=== PATIENT | male | born 1940 | race Caucasian/White ===

== ENCOUNTER 2019-12-23 04:17 | Emergency (ER) | payer MEDICARE, BC, SELFPAY ==
--- NOTE | ~2019-12-23 | XR_ITS ---
EXAMINATION: XR abdomen/kub 1V INDICATION: Abdominal pain TECHNIQUE: Supine views of the abdomen were obtained on 2 radiographs. COMPARISON: 11/29/2014 FINDINGS: There are no dilated loops of bowel. There is elevation of the right hemidiaphragm. Multipl e pelvic phleboliths are noted. There are changes of left total hip arthroplasty. Mild right hip oste oarthritis is noted. There is moderate to severe lumbar spondylosis. IMPRESSION: 1. No radiographic correlate for the patient's symptoms. Reviewed, dictated and finalized at location A.
[2019-12-23 04:20] VITALS: BP 140/90; PULSE 90; RESP 16; TEMP 36.6; O2SAT 95
[2019-12-23 05:36] LABS: Hematocrit 44.5 % (37.0-46.0); Hemoglobin 14.3 g/dL (12.4-15.3); Mean Corpuscular HGB Conc 32.1 g/dL (32.0-36.0); Mean Corpuscular Volume 99.6 fL (78.0-102.0); Mean Platelet Volume 9.4 fl (8.7-11.0); Platelet Count Result 239 K/mm3 (150-420); Red Blood Count 4.47 M/mm3 (4.70-6.10); Red Cell Distribution Width 12.6 % (11.6-14.4); White Blood Count 11.3 K/mm3 (4.8-10.8)
[2019-12-23 05:49] LABS: Alanine Aminotransferase 10 U/L (16-63); Alkaline Phosphatase 69 U/L (46-116); Aspartate Amino Transferase 24 U/L (15-37); Bilirubin,Total 0.5 mg/dL (0.00-1.00); Blood Urea Nitrogen 32 mg/dL (7-18); CRP 0.5 mg/dL (0.0-0.9); Calcium 9.2 mg/dL (8.5-10.1); Carbon Dioxide 28 mmol/L (21-32); Estimated Glomerular Filt Rate 40; Glucose 162 mg/dL (70-99); Total Protein 7.4 g/dL (6.4-8.2)
[2019-12-23 06:04] VITALS: BP 140/70; PULSE 88; RESP 18; O2SAT 95
[2019-12-23 07:01] LABS: Anion Gap 10.2 mmol/L (7-16); Chloride 106 mmol/L (98-107); Osmolality Calculated 300 mOsm/kg (285-295); Potassium 4.2 mmol/L (3.4-5.0); Sodium 140 mmol/L (137-145)
--- NOTE | 2019-12-23 07:25 | ED.GENADULT ---
HPI - General Adult General Chief complaint: Unspecified Stated complaint: stomac pain Source: patient and EMS Limitations: no limitations History of Present Illness HPI narrative: Patient awoke with mild to moderate abd pain. Feels nauseated. No vomiting, diarrhea or constipation. Denies urinary symptoms. He has had some sinus drainage as well. complaint: Abd Pain Onset (ago): hour(s) (1) Location: abdomen Radiation: non-radiation Severity: mild and moderate Quality: aching and dull Pain Consistency: intermittent Relieving factors: none Exacerbating factors: none Associated symptoms: nausea/vomiting (Nausea Only) Related Data Allergies Allergy/AdvReac Type Severity Reaction Status Date / Time amoxicillin [From Augmentin] Allergy Unknown Verified 12/23/19 06:05 clavulanic acid Allergy Unknown Verified 12/23/19 06:05 [From Augmentin] Review of Systems Review of Systems: All systems reviewed & are unremarkable except as noted in HPI and below Constitutional: Constitutional: Denies chills and Denies fever(s) ENT: Reports nasal congestion Respiratory: Respiratory: Reports no additional respiratory complaints Gastrointestinal: Gastrointestinal: Denies constipation, Denies diarrhea and Denies vomiting Genitourinary: Genitourinary: Reports no additional male genitourinary complaints Musculoskeletal: Musculoskeletal: Reports no additional musculoskeletal complaints Integumentary/Breasts: Skin/Breast: Reports system reviewed and no additional complaints, except as docu Neurologic: Reports system reviewed and no additional complaints, except as documented Psychiatric: Psychiatric: Reports no additional psychiatric complaints [facility] Past Medical History Medical History (Updated 12/23/19 @ 07:53 by Johann Sims MD) Afib BPH (benign prostatic hyperplasia) HTN (hypertension) Surgical History Surgical History (Updated 12/23/19 @ 07:43 by Johann Sims MD) History of cataract surgery History of hip replacement, total Left Social History Social History (Updated 12/23/19 @ 07:43 by Johann Sims MD) Smoking status: Never smoker Alcohol intake: never Substance use: never Gender identity (if verbalized by the patient): Male Sexual Orientation (if Verbalized by the Patient): Straight or Heterosexual Exam Const: General: healthy appearing and no acute distress Nutritional Appearance: obese centrally obese Orientation/consciousness: patient oriented x3 Limitations: no limitations HENMT: Head: normal to inspection Ears: external ears normal Face and sinus: normal facial exam Mouth: Yes lip normal and Yes moist mucous membranes Eyes: Conjunctivae: conjunctivae normal Pupils: Equal, round and reactive pupils present EOM: EOMs intact bilaterally Neck: Neck: normal visual inspection Resp: Effort & Inspection: normal respiratory effort Auscultation: clear to auscultation bilaterally Cardio: Rate: regular rate Rhythm: regular rhythm GI: GI Palp: Yes Soft to palpation, No Tenderness to palpation present (GI), No Guarding due to palpation present (GI) and No Rebound tenderness present Auscultation: normal bowel sounds Back/Spine/Pelvis: Cervical Spine: cervical ROM normal Skin: General skin exam: normal color Rashes: no rashes Neuro: General: patient oriented x3 and moves all extremities Extrem: General: normal to inspection and no pedal edema Psych: Appearance: grossly normal and well kempt Mental Status: mental status grossly normal Affect: normal affect Attitude: cooperative Thought content: Yes Normal thought content present Course Course Emergency Course: Patient states he feels much better. His abd symptoms have improved. I went over his lab results and his exam is benign, no abd pain on exam. Vital Signs Vital signs: Vital Signs Temperature 36.6 C 12/23/19 04:20 Pulse Rate 90 12/23/19 04:20 Respiratory Rate 16 12/23/19 04:20 Blood Pressure 140/90
[2019-12-23 07:44] LABS: Add Urine Microscopic? YES; Appearance Urine Clear (Clear); Bilirubin Urine Negative (Negative); Blood Urine 1+ (Negative); Color Urine Yellow (Yellow); Glucose Urine UA 2+ (Negative); Ketones Urine 1+ (Negative); Leukocyte Esterase Ur Negative LEU/UL (Negative); Nitrate Urine Negative (Negative); Protein Urine Trace (Negative); pH Urine 6.5 (5.0-8.0)
[2019-12-23 07:53] LABS: Bacteria Urine Trace /hpf; Squamous Epithelial Cell Urine Rare /hpf (Few); WBC Urine None seen /hpf (0-3)
[2019-12-23 08:00] VITALS: BP 141/70; PULSE 63; RESP 14; TEMP 36.8; O2SAT 98
== END 2019-12-23 08:00 | disposition home or self-care (01) ==
PROVIDERS: Emergency Provider Emergency Medicine; PCP Family Medicine
DX: A08.4 Viral intestinal infection, unspecified (principal); I48.91 Unspecified atrial fibrillation; I10 Essential (primary) hypertension
CPT/HCPCS: 36415; 74018; 80053; 81001; 85027; 86140; 99283; 99284

== ENCOUNTER 2020-02-28 06:36 | Emergency (ER) | payer MEDICARE, BC, SELFPAY ==
[2020-02-28 06:40] VITALS: BP 143/86; PULSE 80; RESP 18; TEMP 37.1; O2SAT 97
--- NOTE | 2020-02-28 07:03 | PC.NURSE ---
[id number] DR CAVANAUGH NOTIFIED OF PATIENT ARRIVAL. AWAITING DR MURCIA.
--- NOTE | 2020-02-28 07:12 | ED.DENTAL ---
HPI - Dental/Oral General Chief complaint: Dental/Oral Stated complaint: ambulance Time Seen by Provider: 02/28/20 07:13 Source: patient Mode of arrival: EMS Limitations: no limitations History of Present Illness HPI Narrative: 79-year-old man with a history of taking warfarin for atrial fibrillation comes in today complaining of bleeding at a dental extraction site. He saw Dr. Easley in [address] yesterday afternoon. He states that he has been bleeding most of the night and has not been able to sleep. He denies vomiting, headache, difficulty swallowing or difficulty breathing. He stopped his warfarin 2 days ago. Teeth map: 1. bleeding extraction site Onset (ago): day(s) (1) Duration: constant Severity: moderate Relieving factors: nothing Exacerbating factors: nothing Related Data Home Medications Medication Instructions Recorded Confirmed amiodarone 200 mg PO HS 02/28/20 02/28/20 clindamycin HCl 150 mg PO DAILY 02/28/20 02/28/20 metoprolol succinate 25 mg PO HS 02/28/20 02/28/20 potassium chloride [Klor-Con M20] 20 meq PO DAILY 02/28/20 02/28/20 rosuvastatin 5 mg PO HS 02/28/20 02/28/20 tamsulosin 0.4 mg PO HS 02/28/20 02/28/20 Allergies Allergy/AdvReac Type Severity Reaction Status Date / Time amoxicillin [From Augmentin] Allergy Unknown Verified 12/23/19 06:05 clavulanic acid Allergy Unknown Verified 12/23/19 06:05 [From Augmentin] Review of Systems Constitutional: Constitutional: Denies chills and Denies fever(s) Eyes: Eyes: Denies change in vision and Denies photophobia ENT: Denies dysphagia, Denies nasal congestion and Denies sore throat Cardiovascular: Cardiovascular: Denies chest pain and Denies radiating jaw, neck or arm pain Respiratory: Respiratory: Denies cough, Denies dyspnea and Denies wheezing Gastrointestinal: Gastrointestinal: Denies abdominal pain, Denies nausea and Denies vomiting Genitourinary: Genitourinary: Denies dysuria and Denies urinary frequency Integumentary/Breasts: Skin/Breast: Denies pruritus, Denies erythema and Denies rash Neurologic: Denies vertigo, Denies dizziness and Denies syncope Hematologic/Lymphatic: Hematologic/Lymphatic: Reports easy bleeding and Reports easy bruising Allergic/Immunologic: Allergic/Immunologic: Denies lip swelling and Denies tongue swelling PMFSH Past Medical History Medical History Afib BPH (benign prostatic hyperplasia) HTN (hypertension) Surgical History Surgical History History of cataract surgery History of hip replacement, total Left Social History Social History Smoking status: Never smoker Alcohol intake: never Substance use: never Gender identity (if verbalized by the patient): Male Exam Const: General: healthy appearing and alert Orientation/consciousness: patient oriented x3 Limitations: no limitations Other: anxious HENMT: Head: normal to inspection Ears: external ears normal, TM's normal bilaterally and EAC's normal General nose exam: Normal nares present Face and sinus: normal facial exam Other: Large fibrin clot attached to the posterior aspect of the tongue which is rather dry. There is mild gingival swelling around the extraction site at 31 or 32 Where there is also a laceration on the buccal surface of the gingiva. Area is tender. There is no purulent drainage however there is a steady flow of maroon blood from the extraction site. There is no jaw, submandibular, or neck swelling. Eyes: Conjunctivae: conjunctivae normal Pupils: Equal, round and reactive pupils present EOM: EOMs intact bilaterally Resp: Effort & Inspection: normal respiratory effort and not labored Auscultation: clear to auscultation bilaterally, no rales, no rhonchi and no wheezes Cardio: Rate: regular rate Rhythm: abnormal rhythm Skin: General skin
[2020-02-28 07:43] LABS: Basophils Absolute Auto 0.01 K/mm3 (0.00-0.10); Basophils Percent Auto 0.1 % (0.0-1.0); Eosinophils Absolute Auto 0.08 K/mm3 (0.02-0.50); Hematocrit 42.7 % (37.0-46.0); Hemoglobin 13.6 g/dL (12.4-15.3); Immature Granulocyte Absolute 0.03 K/mm3 (0.00-0.00); Immature Granulocyte Percent A 0.4 % (0.0-0.0); Lymphocytes Absolute Auto 1.33 K/mm3 (1.10-4.50); Mean Corpuscular HGB Conc 31.9 g/dL (32.0-36.0); Mean Corpuscular Hemoglobin 31.4 pg (27.0-31.0); Mean Corpuscular Volume 98.6 fL (78.0-102.0); Mean Platelet Volume 9.1 fl (8.7-11.0); Monocytes Absolute Auto 0.65 K/mm3 (0.10-0.90); Monocytes Percent Auto 7.8 % (2.0-11.0); Neutrophils Absolute Auto 6.2 K/mm3 (1.7-7.2); Neutrophils Percent Auto 74.7 % (50.0-70.0); Platelet Count Result 243 K/mm3 (150-420); Red Blood Count 4.33 M/mm3 (4.70-6.10); Red Cell Distribution Width 12.9 % (11.6-14.4); White Blood Count 8.3 K/mm3 (4.8-10.8)
--- NOTE | 2020-02-28 07:53 | PC.NURSE ---
Addendum entered by Jose Melgoza, MARQUISE 02/28/20 07:56: [address] MURCIA, SUCTION TO CLOT AREA , SURGICEL APPLIED. 07[address] DR [address] SPOKE WITH DR LOTT, ORAL SURGEON. PT TO GO DIRECTLY TO OFFICE PER PERSONAL VEHICLE. CALL TO TO NOTIFY. STATES SHE WILL BE HERE TATO. Original Note: 0710 MANUAL PRESSURE PER RN. 0740
[2020-02-28 07:59] VITALS: BP 141/83; PULSE 78; RESP 20; TEMP 36.9; O2SAT 98
[2020-02-28 08:07] LABS: Anion Gap 8 mmol/L (8-16); Blood Urea Nitrogen 25 mg/dL (7-18); Calcium 9.4 mg/dL (8.5-10.1); Carbon Dioxide 29 mmol/L (21-32); Chloride 106 mmol/L (98-108); Estimated CRCL calculation 57 ml/min; Estimated Glomerular Filt Rate > 60; Glucose 118 mg/dL (70-99); Osmolality Calculated 301 mOsm/kg (285-295); Potassium 3.7 mmol/L (3.5-5.1); Sodium 143 mmol/L (136-145)
[2020-02-28 08:09] LABS: Partial Thromboplastin Time 45.6 SEC (22.3-31.6); Prothrombin Time 39.4 Seconds (9.64-11.0)
--- NOTE | 2020-02-28 08:34 | PC.NURSE ---
0825 FRESH GAUZE TO PRESSURE DYAN QUEVEDO ASSISTED TO CAR WITH . DRCHANDRAKANTCTIONS TO BOTH. BOTH VOICED UNDERSTANDING. CALL TO DR LOTT OFFICE TO NOTIFY WENDY OF DEPARTURE AND LAB RESULTS.
== END 2020-02-28 08:28 | disposition home or self-care (01) ==
PROVIDERS: Emergency Provider Emergency Medicine; PCP Family Medicine
DX: K13.79 Other lesions of oral mucosa (principal); I48.91 Unspecified atrial fibrillation; I10 Essential (primary) hypertension
CPT/HCPCS: 12011; 36415; 80048; 85025; 85610; 85730; 99282; 99283

== ENCOUNTER 2021-04-29 21:43 | Emergency (ER) | payer MEDICARE, BC, SELFPAY ==
[2021-04-29 22:03] VITALS: BP 126/67; PULSE 67; RESP 18; TEMP 36.9; O2SAT 96
[2021-04-30 00:21] VITALS: BP 129/78; PULSE 63; RESP 16; TEMP 36.1; O2SAT 96
[2021-04-30 00:39] LABS: Basophils Percent Auto 0.3 % (0.2-1.2); Eosinophils Absolute Auto 0.2 K/mm3 (0-0.3); Eosinophils Percent Auto 2.1 % (0-4.4); Hematocrit 45.8 % (42.0-52.0); Hemoglobin 14.7 g/dL (14.0-18.0); Immature Granulocyte Absolute 0.03 K/mm3 (0.00-0.031); Immature Granulocyte Percent A 0.4 % (0-0.5); Lymphocytes Absolute Auto 1.31 K/mm3 (0.9-3.2); Lymphocytes Percent Auto 16.8 % (18.3-44.2); Mean Corpuscular HGB Conc 32.1 g/dl (32-36); Mean Corpuscular Hemoglobin 32.5 pg (26-34); Mean Corpuscular Volume 101.3 fl (80-100); Mean Platelet Volume 9.2 fl (7.4-10.4); Monocytes Absolute Auto 0.6 K/mm3 (0.1-0.6); Monocytes Percent Auto 8.2 % (2.6-8.5); Neutrophils Absolute Auto 5.6 K/mm3 (1.3-6.7); Neutrophils Percent Auto 72.2 % (45.5-73.1); Platelet Count Result 267 k/mm3 (150-375); Red Blood Count 4.52 M/mm3 (4.6-6.20); Red Cell Distribution Width 13.1 % (11.5-14.5); White Blood Count 7.8 K/mm3 (4.5-10.0)
--- NOTE | 2021-04-30 00:52 | ED.RECABL ---
HPI - Recheck/Abnormal Lab/Rx General Chief Complaint: Recheck/Abnormal Lab/Rx Stated Complaint: elevated INR from PCP Time Seen by Provider: 04/30/21 00:26 Source: patient and RN notes reviewed Mode of arrival: ambulatory Limitations: no limitations History of Present Illness HPI narrative: This is an 80 year old male with history of atrial fibrillation, chronic anticoagulation who presents for evaluation of supratherapeutic INR. Patient states he was called by his PCP at 9 pm tonight, and was told he needed to come to ER for INR of 15. He has taken his dose of Warfarin tonight. His INR was last checked 1 mo nth ago and he is unsure of the level. At that time his warfarin was decreased. He denies any bleeding, weakness, melena. He denies headache, dizziness or head injury,. He denies any bleeding at all. Related Data Home Medications Medication Instructions Recorded Confirmed amiodarone 200 mg PO HS 02/28/20 02/28/20 clindamycin HCl 150 mg PO DAILY 02/28/20 02/28/20 metoprolol succinate 25 mg PO HS 02/28/20 02/28/20 potassium chloride [Klor-Con M20] 20 meq PO DAILY 02/28/20 02/28/20 rosuvastatin 5 mg PO HS 02/28/20 02/28/20 tamsulosin 0.4 mg PO HS 02/28/20 02/28/20 Allergies Allergy/AdvReac Type Severity Reaction Status Date / Time amoxicillin [From Augmentin] Allergy Rash Verified 04/30/21 00:26 clavulanic acid Allergy Rash Verified 04/30/21 00:26 [From Augmentin] Review of Systems Review of Systems: All systems reviewed & are unremarkable except as noted in HPI and below Constitutional: Constitutional: Denies chills, Denies fever(s) and Denies weakness Genitourinary: Genitourinary: Denies hematuria Neurologic: Denies dizziness PMFSH Past Medical History Medical History Afib BPH (benign prostatic hyperplasia) HTN (hypertension) Surgical History Surgical History History of cataract surgery History of hip replacement, total Left Social History Social History Smoking status: Never smoker Alcohol intake: never Substance use: never Gender identity (if verbalized by the patient): Male Sexual Orientation (if Verbalized by the Patient): Straight or Heterosexual Exam Const: General: no acute distress and alert Orientation/consciousness: patient oriented x3 Eyes: EOM: EOMs intact bilaterally Resp: Effort & Inspection: normal respiratory effort and no retractions Auscultation: clear to auscultation bilaterally Cardio: Rate: regular rate Rhythm: regular rhythm Heart sounds: no murmurs GI: GI Palp: Yes Soft to palpation, No Tenderness to palpation present (GI) and No Guarding due to palpation present (GI) Auscultation: normal bowel sounds Skin: General skin exam: normal color Rashes: no rashes Neuro: General: patient oriented x3, moves all extremities and CN's II-XI intact bilaterally Psych: Mental Status: mental status grossly normal Affect: normal affect Course Reevaluation(s) Reevaluation #1: I spoke with Dr. Tyson that is bonding machine setter for Dr. Tovar. Patient has no signs of bleeding. INR is 10. She states patient will need to call office tomorrow for close follow up . He will be given dose of vitamin K and told to hold his warfarin. He will also be given bleeding precautions. Date: 04/30/21 Time: 03:06 Vital Signs Vital signs: Vital Signs Temperature 98.5 F 04/29/21 22:03 Pulse Rate 67 04/29/21 22:03 Respiratory Rate 18 04/29/21 22:03 Blood Pressure 126/67 04/29/21 22:03 Pulse Oximetry 96 04/29/21 22:03 Temperature 97 F L 04/30/21 00:21 Pulse Rate 62 04/30/21 03:44 Respiratory Rate 18 04/30/21 03:44 Blood Pressure 125/62 04/30/21 03:44 Pulse Oximetry 100 04/30/21 03:44 MDM - Recheck/Abnormal Lab/Rx Lab Data Attestation: I reviewed the patient's lab resu
[2021-04-30 00:53] LABS: Anion Gap 5 mmol/L (8-16); Blood Urea Nitrogen 24 mg/dL (9-20); Calcium 9.8 mg/dL (8.4-10.2); Carbon Dioxide 31 mmol/L (22-30); Chloride 103 mmol/L (98-107); Estimated CRCL calculation 60 ml/min; Estimated Glomerular Filt Rate > 60; Glucose 118 mg/dL (65-110); Potassium 4.7 mmol/L (3.4-5.0); Sodium 139 mmol/L (137-145)
[2021-04-30 00:57] LABS: Partial Thromboplastin Time 76.7 SECONDS (22.3-36.8); Prothrombin Time 76.7 Seconds (11.1-14.7)
[2021-04-30 02:20] LABS: INR 10.1
[2021-04-30 03:44] VITALS: BP 125/62; PULSE 62; RESP 18; O2SAT 100
[2021-04-30] MEDS: PHYTONADIONE 5 MG TABLET PO (03:46)
== END 2021-04-30 04:33 | disposition home or self-care (01) ==
PROVIDERS: Emergency Medicine; Emergency Provider General Practice; PCP Family Medicine
DX: R79.1 Abnormal coagulation profile (principal); I10 Essential (primary) hypertension; I48.91 Unspecified atrial fibrillation; Z79.01 Long term (current) use of anticoagulants
CPT/HCPCS: 36415; 80048; 85025; 85610; 85730; 99283; A9270

== ENCOUNTER 2022-08-16 09:42 | Emergency (ER) | payer MEDICARE, BC, SELFPAY ==
[2022-08-16] VITALS (9 sets, daily range): BP systolic 129–173; BP diastolic 68–99; PULSE 62–84; RESP 18–20; TEMP 36.7; O2SAT 95–100
--- NOTE | ~2022-08-16 | CT_ITS ---
EXAMINATION: CT abdomen pelvis w con INDICATION: Abdominal pain TECHNIQUE: Computed tomographic images of the abdomen and pelvis were obtained after the administrati on of 100 cc of Omnipaque 350 intravenous contrast. The dose-length product (DLP) was 821.17 mGy-cm. Automated exposure control and iterative reconstruction technique were employed. COMPARISON: 11/05/2017 FINDINGS: There are airspace opacities of the right middle and lower lobes. There is a moderate-sized sliding hiatal hernia. Calcified coronary artery atherosclerosis is noted. The heart size is normal. Punctate calcifications in otherwise normal appearing liver and spleen likely represent healed granu lomatous disease. The pancreas, gallbladder, and adrenal glands are normal. Nonobstructing stones of the right kidney measure up to 9 mm. There is a 2.5 cm cyst of the otherwise normal left kidney. No p athologically enlarged abdominal or pelvic lymph nodes are identified. No free intraperitoneal gas or evidence of bowel obstruction. A large volume of colonic stool is present. There are changes of left total hip arthroplasty. 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 There are chronic burst f ractures of L2 and L3 and new, age indeterminate burst fractures at L1, L4, and L5. IMPRESSION: 1. Airspace opacities of the right middle and lower lobes, consistent with atelectasis versus pneumon ia. 2. 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 3. Moderate-sized sliding hiatal hernia. Reviewed, dictated and finalized at location F. IMPRESSION: 1. Airspace opacities of the right middle and lower lobes, consistent with atel ectasis versus pneumonia. 2. 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 3. Moderate-sized sliding hiatal hernia.
[2022-08-16 10:14] LABS: Basophils Percent Auto 0.3 % (0.2-1.2); Eosinophils Absolute Auto 0.1 K/mm3 (0-0.3); Eosinophils Percent Auto 1.1 % (0-4.4); Hemoglobin 14.6 g/dL (14.0-18.0); Immature Granulocyte Absolute 0.03 K/mm3 (0.00-0.031); Immature Granulocyte Percent A 0.4 % (0-0.5); Lymphocytes Absolute Auto 0.99 K/mm3 (0.9-3.2); Mean Corpuscular HGB Conc 32.4 g/dl (32-36); Mean Corpuscular Hemoglobin 31.8 pg (26-34); Mean Platelet Volume 9.2 fl (7.4-10.4); Monocytes Absolute Auto 0.5 K/mm3 (0.1-0.6); Monocytes Percent Auto 6.7 % (2.6-8.5); Neutrophils Percent Auto 78.5 % (45.5-73.1); Platelet Count Result 286 k/mm3 (150-375); Red Blood Count 4.59 M/mm3 (4.6-6.20); Red Cell Distribution Width 12.6 % (11.5-14.5); White Blood Count 7.6 K/mm3 (4.5-10.0)
[2022-08-16 10:24] LABS: Alanine Aminotransferase 11 U/L (6-50); Albumin Level 4.1 g/dL (3.5-5.1); Alkaline Phosphatase 112 U/L (38-126); Anion Gap 9 mmol/L (8-16); Aspartate Amino Transferase 23 U/L (17-59); Bilirubin,Total 0.8 mg/dL (0.2-1.3); Blood Urea Nitrogen 19 mg/dL (9-20); Calcium 9.3 mg/dL (8.4-10.2); Carbon Dioxide 27 mmol/L (22-30); Chloride 103 mmol/L (98-107); Estimated Glomerular Filt Rate > 60; Glucose 134 mg/dL (65-110); Lipase 58 U/L (23-300); Potassium 4.1 mmol/L (3.4-5.0); Sodium 139 mmol/L (137-145)
[2022-08-16 13:27] LABS: Appearance Urine Clear (Clear); Bacteria Urine None Seen /hpf; Bilirubin Urine Negative (Negative); Blood Urine Negative (Negative); Color Urine Yellow (Yellow); Glucose Urine UA Negative (Negative); Ketones Urine 1+ mg/dL (Negative); Leukocyte Esterase Ur Negative LEU/UL (Negative); Nitrate Urine Negative (Negative); Non Pathogenic Casts 0-2; Protein Urine Trace mg/dL (Negative); RBC Urine 0-2 /hpf (0-2); Specific Grav Ur 1.027 (1.001-1.035); Squamous Epithelial Cell Urine None seen /hpf (Few); WBC Urine 0-5 /hpf
[2022-08-16 13:46] LABS: Add Urine Microscopic? YES
--- NOTE | 2022-08-16 14:11 | ED.GENADULT ---
HPI - General Adult General Chief complaint: Abdominal Pain Stated complaint: abd pain Time Seen by Provider: 08/16/22 12:40 History of Present Illness HPI narrative: 81-year-old male presenting to the emergency department for evaluation of right hip pain, back pain and lower abdominal pain. Patient reports he had multiple days of constipation but did have a large bowel movement yesterday. Patient states he is still having some lower abdominal pressure. Patient reports he did have a fall a few days ago and was having some right hip pain. Patient does have history of total arthroplasty on that side. Patient does have a history of lumbar compression fractures and reports he did have a fall approximately 3 weeks ago. Patient denies any new associated numbness or weakness. Related Data Home Medications Medication Instructions Recorded Confirmed amiodarone 200 mg tablet 200 mg PO HS 02/28/20 02/28/20 metoprolol succinate 25 mg 25 mg PO HS 02/28/20 02/28/20 tablet,extended release 24 hr potassium chloride 20 mEq 20 meq PO DAILY 02/28/20 02/28/20 tablet,extended release(part/cryst) (Klor-Con M) rosuvastatin 10 mg tablet 5 mg PO HS 02/28/20 02/28/20 tamsulosin 0.4 mg capsule 0.4 mg PO HS 02/28/20 02/28/20 apixaban 5 mg tablet (Eliquis) 5 mg BID 08/16/22 Allergies Allergy/AdvReac Type Severity Reaction Status Date / Time amoxicillin [From Augmentin] Allergy Rash Verified 08/16/22 13:19 clavulanic acid Allergy Rash Verified 08/16/22 13:19 [From Augmentin] Review of Systems Review of Systems: All systems reviewed & are unremarkable except as noted in HPI and below PMFSH Past Medical History Medical History Afib BPH (benign prostatic hyperplasia) HTN (hypertension) Surgical History Surgical History History of cataract surgery History of hip replacement, total Left Social History Social History Smoking status: Never smoker Alcohol intake: never Substance use: never Gender identity (if verbalized by the patient): Male Sexual Orientation (if Verbalized by the Patient): Straight or Heterosexual Exam Narrative: APPEARANCE: Well appearing, no pain, no distress, well-nourished. HEAD: normocephalic, atraumatic. EYES: PERRLA/EOMI, conjunctivae clear. NOSE: Normal no drainage NECK: Supple. No adenopathy, no masses. RESPIRATORY: Airway patent, respirations nonlabored. Clear to auscultation bilaterally, no rales, rhonchi, wheezing. CARDIOVASCULAR: Regular rate and rhythm without murmurs rubs or gallops. ABDOMINAL: Soft, mild lower abdominal tenderness, nondistended, normal bowel sounds MUSCULOSKELETAL: Moves all extremities. Strength/ROM intact, No edema, No calf tenderness. NEURO: Alert. Cranial nerves II through XII intact. Grossly intact SKIN: Warm, dry. Normal Color Course Course Emergency Course: Patient is afebrile with no leukocytosis. Patient denies any chest pain or shortness of breath. Patient denies any associated cough. UA did show ketones with no evidence of urinary tract infection. CT scan shows old burst fractures and age-indeterminate burst fractures. Patient states he has had no worsening of his back pain. Patient was able to ambulate at his baseline. Patient states that the abdominal pain did improve after having a large bowel movement. Both patient and family were updated on the results of the work-up and on importance for close follow-up with the patient's primary care physician. Patient was provided medications for home for pain control for his back pain. Patient has no new neurologic changes and denies any new numbness or weakness. Patient was provided follow-up with neurosurgery. Vital Signs Vital signs: Vital Signs Temperature 98.1 F 08/16/22 09:57 Pulse Rate 62 08/16/22 09:57 Respiratory Rate
[2022-08-16] MEDS: traMADol HCL (*CRX) 50 MG TABLET PO (16:56)
== END 2022-08-16 17:00 | disposition home or self-care (01) ==
PROVIDERS: Emergency Medicine; Emergency Provider Emergency Medicine
DX: M48.56XA Collapsed vertebra, not elsewhere classified, lumbar region, initial encounter for fracture (principal); R10.9 Unspecified abdominal pain; K59.00 Constipation, unspecified; I48.91 Unspecified atrial fibrillation; I10 Essential (primary) hypertension; N40.0 Benign prostatic hyperplasia without lower urinary tract symptoms; Z79.01 Long term (current) use of anticoagulants
CPT/HCPCS: 36415; 74177; 80053; 81001; 83690; 85025; 99284; A9270; Q9967

== ENCOUNTER 2022-08-31 15:31 | Inpatient (IN) | payer MEDICARE, BC, SELFPAY ==
--- NOTE | ~2022-08-31 | CT_ITS ---
EXAMINATION: CT brain wo con DATE: 08/31/2022 19:35 INDICATION: weakness, confusion . TECHNIQUE: Computed tomography (CT) of the head was performed without intravenous contrast. The mA wa s adjusted according to patient size. Iterative reconstruction technique was employed. The dose-lengt h product was 681.00 mGy-cm. COMPARISON: 11/29/2014. FINDINGS: No acute intracranial hemorrhage or extra-axial fluid collection. No hydrocephalus, mass, or herniation. No acute ischemic infarct. Unremarkable dural venous sinus attenuation. No acute osseous abnormality. Left mastoid fluid, the remaining aerated spaces are clear. Moderate atrophy and chronic white matter change. Atherosclerotic intracranial calcification. 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 Bilateral lens replacements. IMPRESSION: No acute intracranial process. Reviewed, dictated and finalized at location K.
--- NOTE | ~2022-08-31 | XR_ITS ---
EXAMINATION: XR chest 1V Exam Date/Time: 08/31/2022 19:30 CDT HISTORY: weakness Comparison: 01/17/2018. RESULT: Lines, tubes, and devices: None. Lungs and pleura: Right rotation. Low lung volumes with crowding, more so in the right lung. Bibasil ar scar/atelectasis. Cardiomediastinal silhouette: Stable. Large hiatal hernia. Right hemidiaphragm elevation. Other: No acute osseous or upper abdominal finding. IMPRESSION: No acute cardiopulmonary process. Reviewed, dictated and finalized at location K.
--- NOTE | ~2022-08-31 | XR_ITS ---
XR abdomen/kub 1V 09/02/2022 15:34 Indication: Abdominal distention Procedure: KUB Comparison: 09/02/2022 Findings: Chronic elevation of the right diaphragm with right basilar atelectasis. Bowel gas pattern nonobstructive. Severe lumbar spondylosis. There is a left total hip arthroplasty. There are several pelvic phleboliths. No acute osseous abnormality. Impression: 1: No acute abdominal abnormality. Reviewed, dictated and finalized at location B. Impression: 1: No acute abdominal abnormality.
--- NOTE | ~2022-08-31 | XR_ITS ---
EXAM: XR hip RT 2V w AP pelvis DATE: 08/31/2022 19:45 HISTORY: fall . COMPARISON: None available. FINDINGS: Decreased mineralization. Partially visualized, uncomplicated appearing left hip arthropla sty. Degenerative changes in the lumbar spine and right hip. No fracture or dislocation. Multiple pel andrew phleboliths. IMPRESSION: No acute osseous finding in the pelvis or right hip. Reviewed, dictated and finalized at location K.
--- NOTE | ~2022-08-31 | CT_ITS ---
Non-contrast CT scan of the Abdomen and Pelvis Clinical indication: Abdominal pain Technique: 2.5 mm axial scans were obtained through the abdomen and pelvis without intravenous or or al contrast. Dose reduction technique was used on this scan by utilizing automated exposure control a nd iterative reconstruction technique. The dose-length product (DLP) was 1031.28 mGy-cm. COMPARISON: 08/16/2022 Findings: Images through the lung bases reveal moderate to large hiatal hernia. Bilateral nonobstructing renal calculi are present. No ureteral stone or hydronephrosis identified. The liver, spleen, pancreas, gallbladder, and adrenals appear normal. There are atherosclerotic calci fications of the aorta. There is no evidence of bowel obstruction. Images through the pelvis are degraded by streak artifact from left hip arthroplasty. There is no lavell dence of ascites or lymphadenopathy. Urinary bladder appears unremarkable. Prostate gland is grossly unremarkable. Compression fracture of T10 is new from prior exam. Additional compression fractures of L1, L2, L3, L 4, and L5 are similar to prior exam. Impression: New T10 compression fracture. Stable additional compression fractures of L1, L2, L3, L4, L5. Bilateral nonobstructing renal calculi. Moderate to large hiatal hernia. Reviewed, dictated and finalized at location . Impression: New T10 compression fracture. Stable additional compression fractures of L1, L2 , L3, L4, L5. Bilateral nonobstructing renal calculi. Moderate to large hiatal hernia.
[2022-08-31 15:44] VITALS: BP 121/75; PULSE 80; RESP 17; O2SAT 97
[2022-08-31 16:13] LABS: Basophils Percent Auto 0.1 % (0.2-1.2); Eosinophils Absolute Auto 0.1 K/mm3 (0-0.3); Eosinophils Percent Auto 0.9 % (0-4.4); Hematocrit 45.8 % (42.0-52.0); Hemoglobin 14.8 g/dL (14.0-18.0); Immature Granulocyte Absolute 0.06 K/mm3 (0.00-0.031); Immature Granulocyte Percent A 0.6 % (0-0.5); Lymphocytes Absolute Auto 0.84 K/mm3 (0.9-3.2); Mean Corpuscular HGB Conc 32.3 g/dl (32-36); Mean Corpuscular Hemoglobin 31.9 pg (26-34); Mean Corpuscular Volume 98.7 fl (80-100); Mean Platelet Volume 9.4 fl (7.4-10.4); Monocytes Absolute Auto 0.7 K/mm3 (0.1-0.6); Monocytes Percent Auto 6.4 % (2.6-8.5); Neutrophils Absolute Auto 8.9 K/mm3 (1.3-6.7); Platelet Count Result 322 k/mm3 (150-375); Red Blood Count 4.64 M/mm3 (4.6-6.20); Red Cell Distribution Width 12.4 % (11.5-14.5); White Blood Count 10.5 K/mm3 (4.5-10.0)
[2022-08-31 16:23] LABS: INR 1.4; Prothrombin Time 16.4 Seconds (11.1-14.7)
[2022-08-31 16:40] LABS: Alanine Aminotransferase 13 U/L (6-50); Albumin Level 4.3 g/dL (3.5-5.1); Alkaline Phosphatase 141 U/L (38-126); Anion Gap 6 mmol/L (8-16); Aspartate Amino Transferase 27 U/L (17-59); Blood Urea Nitrogen 25 mg/dL (9-20); Calcium 9.6 mg/dL (8.4-10.2); Carbon Dioxide 31 mmol/L (22-30); Chloride 99 mmol/L (98-107); Estimated Glomerular Filt Rate > 60; Glucose 134 mg/dL (65-110); Sodium 136 mmol/L (137-145)
[2022-08-31 18:46] VITALS: PULSE 91; RESP 27; O2SAT 97
--- NOTE | 2022-08-31 19:18 | ECG_ITS ---
Measurements Intervals [place] Rate: 85 P: 85 UT: 216 QRS: 34 QRSD: 128 T: 36 QT: 407 QTc: 487 Interpretive Statements SINUS RHYTHM WITH FIRST DEGREE AV BLOCK BASELINE ARTIFACT LOW-VOLTAGE QRS IN PRECORDIAL LEADS MODERATE INTRAVENTRICULAR CONDUCTION DELAY ABNORMAL ECG NO PREVIOUS ECG AVAILABLE FOR COMPARISON Electronically Signed On 09-02-2022 16:09:52 CDT by Brian Nunez M.D.
--- NOTE | 2022-08-31 19:21 | ED.AMS ---
HPI - Altered Mental Status General Chief Complaint: Altered Mental Status Stated Complaint: Confusion Time Seen by Provider: 08/31/22 18:46 Source: patient, family (), EMS and RN notes reviewed Mode of arrival: EMS Limitations: altered mental status History of Present Illness HPI narrative: This is an 81 year old male with history of atrial fibrillation who presents for evaluation of confusion. Patient's states he has not been right since this morning. She states he knows her name but he has otherwise been confused. She states he was here 2 weeks ago for weakness but his evaluation was unremarkable so he was sent home. She also reports patient is having right hip pain for the past couple of weeks. He had imaging done on last ER visit and no acute fracture. She states today she can not take him home. PAtient is poor historian and he thinks he is in hotel. Related Data Home Medications Medication Instructions Recorded Confirmed amiodarone 200 mg tablet 200 mg PO HS 02/28/20 08/31/22 metoprolol succinate 25 mg 25 mg PO HS 02/28/20 08/31/22 tablet,extended release 24 hr potassium chloride 20 mEq 20 meq PO DAILY 02/28/20 08/31/22 tablet,extended release(part/cryst) (Klor-Con M) rosuvastatin 10 mg tablet 5 mg PO HS 02/28/20 08/31/22 tamsulosin 0.4 mg capsule 0.4 mg PO HS 02/28/20 08/31/22 apixaban 5 mg tablet (Eliquis) 5 mg BID 08/16/22 08/31/22 Allergies Allergy/AdvReac Type Severity Reaction Status Date / Time amoxicillin [From Augmentin] Allergy Rash Verified 08/31/22 18:48 clavulanic acid Allergy Rash Verified 08/31/22 18:48 [From Augmentin] Review of Systems Review of Systems: ROS unobtainable: Yes unobtainable due to mental status PMFSH Past Medical History Medical History Afib BPH (benign prostatic hyperplasia) HTN (hypertension) Surgical History Surgical History History of cataract surgery History of hip replacement, total Left Social History Social History Smoking status: Never smoker Alcohol intake: never Substance use: never Gender identity (if verbalized by the patient): Male Sexual Orientation (if Verbalized by the Patient): Straight or Heterosexual Exam Const: General: alert, confusion and ill appearing Nutritional Appearance: obese Other: patient appears weak and confused. oriented to place on only HENMT: Head: normal to inspection Face and sinus: normal facial exam Eyes: EOM: EOMs intact bilaterally Neck: Neck: normal visual inspection Chest: Chest palpation & inspection: normal inspection of the chest Resp: Effort & Inspection: normal respiratory effort Auscultation: clear to auscultation bilaterally Cardio: Rate: regular rate Rhythm: regular rhythm Heart sounds: no murmurs GI: GI Palp: Yes Soft to palpation, No Tenderness to palpation present (GI), No Guarding due to palpation present (GI) and No Rigid due to palpation Auscultation: normal bowel sounds Skin: Other: rash to groin and abdominal folds Neuro: General: moves all extremities and CN's II-XI intact bilaterally Extrem: General: edema bilateral (bilateral pedal edema) Psych: Mental Status: mental status grossly normal Affect: normal affect Attitude: cooperative Course Reevaluation(s) Reevaluation #1: PAtient's is no longer at bedside. PAtietn has no complaints. He still seems confusion which I do think is normal for him. Will admitted for further evaluation. Date: 08/31/22 Time: 21:00 Consultations Consultation #1: I Discussed case with Dr. Keita who accepts patient to service Date: 08/31/22 Time: 21:31 Vital Signs Vital signs: Vital Signs Pulse Rate 80 08/31/22 15:44 Respiratory Rate 17 08/31/22 15:44 Blood Pressure 121/75 08/31/22 15:44 Pulse Oximetry 97 08/31/22 15:44 O
[2022-08-31 19:42] LABS: NT Pro B Type Natriuretic Pept 107 pg/mL (19.9-100)
[2022-08-31 19:47] VITALS: BP 154/94; PULSE 82; RESP 26; TEMP 36.7; O2SAT 99
[2022-08-31 20:52] VITALS: BP 138/80; PULSE 79; RESP 23; O2SAT 96
[2022-08-31 21:00] LABS: Appearance Urine Clear (Clear); Bilirubin Urine Negative (Negative); Blood Urine Negative (Negative); Color Urine Dark Yellow (Yellow); Glucose Urine UA Negative (Negative); Ketones Urine Negative (Negative); Leukocyte Esterase Ur Negative LEU/UL (Negative); Nitrate Urine Negative (Negative); Protein Urine Negative (Negative); Specific Grav Ur 1.017 (1.001-1.035); Urobilinogen Urine 0.2 mg/dL (<2.0)
[2022-08-31 21:12] LABS: Add Urine Microscopic? NO
--- NOTE | 2022-08-31 21:36 | PM.IMHP ---
H&P: HPI History of Present Illness Date/Time: 08/31/22 21:36 Chief Complaint: 81 years old male with past medical history of AFib with oral anticoagulation amiodarone metoprolol hyperlipidemia hypertension presented to the hospital with confusion patient is alert oriented times [address] and [address] oriented to self history was taken from the patient patient was not feeling well for the past 2 weeks patient was evaluated at [facility] pain no fracture was found patient continued to have hip pain at the ER CBC CMP was unremarkable chest x-ray was unremarkable CT scan of the head was unremarkable patient was admitted to the hospital for further evaluation and treatment Review of Systems Review of Systems: Unable to obtain due to altered mental status [facility] Past Medical History Medical History Afib BPH (benign prostatic hyperplasia) HTN (hypertension) Surgical History Surgical History History of cataract surgery History of hip replacement, total Left Social History Social History Smoking status: Never smoker Alcohol intake: never Substance use: never Gender identity (if verbalized by the patient): Male Sexual Orientation (if Verbalized by the Patient): Straight or Heterosexual Meds Home Medications and Allergies Home Medications Medication Instructions Recorded Confirmed Type amiodarone 200 mg tablet 200 mg PO HS 02/28/20 02/28/20 History metoprolol succinate 25 mg 25 mg PO HS 02/28/20 02/28/20 History tablet,extended release 24 hr potassium chloride 20 mEq 20 meq PO DAILY 02/28/20 02/28/20 History tablet,extended release(part/cryst) (Klor-Con M) rosuvastatin 10 mg tablet 5 mg PO HS 02/28/20 02/28/20 History tamsulosin 0.4 mg capsule 0.4 mg PO HS 02/28/20 02/28/20 History apixaban 5 mg tablet (Eliquis) 5 mg BID 08/16/22 History tramadol 50 mg tablet 50 mg PO Q12H PRN pain #10 tabs 08/16/22 Rx Allergies Allergy/AdvReac Type Severity Reaction Status Date / Time amoxicillin [From Augmentin] Allergy Rash Verified 08/31/22 18:48 clavulanic acid Allergy Rash Verified 08/31/22 18:48 [From Augmentin] Vital Signs Vital Signs - 24 hr 08/31/22 15:44 08/31/22 18:46 08/31/22 19:47 Temperature 98.1 F Pulse Rate 80 91 82 Respiratory Rate 17 27 H 26 H Blood Pressure 121/75 154/94 H Pulse Oximetry 97 97 99 Oxygen Delivery Room Air 08/31/22 20:52 Temperature Pulse Rate 79 Respiratory Rate 23 H Blood Pressure 138/80 Pulse Oximetry 96 Oxygen Delivery Exam Narrative: GENERAL: No acute distress HEAD: Normocephalic, atraumatic. NECK: Supple. No adenopathy, no masses. RESPIRATORY: Airway patent, respirations nonlabored. Clear to auscultation bilaterally, no rales, rhonchi, wheezing. CARDIOVASCULAR: Regular rate and rhythm without murmurs, rubs, or gallops. Peripheral pulses 2+ and equal bilaterally. ABDOMINAL: Soft, nontender, nondistended, no hepatosplenomegaly. Normoactive BS. MUSCULOSKELETAL: Moves all extremities. Strength/ROM intact without gross deformities or TTP. No edema. No calf tenderness. No chest wall tenderness palpation. SKIN: Warm, dry, normal color. No rashes. NEURO: Alert oriented time 1 moves all extremities no facial asymmetry PSYCHIATRIC: Appropriate mood and affect. Normal interaction. H&P: Results Labs Labs: Short CBC 08/31/22 Range/Units 16:02 WBC 10.5 H (4.5-10.0) K/mm3 Hgb 14.8 (14.0-18.0) g/dL Hct 45.8 (42.0-52.0) % Plt Count 322 (150-375) k/mm3 [facility] 08/31/22 16:02 Sodium 136 L Potassium 4.0 Chloride 99 Carbon Dioxide 31 H BUN 25 H Creatinine 0.80 Glucose 134 H Calcium 9.6 Liver Function 08/31/22 Range/Units 16:02 Total Bilirubin 1.0 (0.2-1.3) mg/dL AST 27 (17-59) U/L ALT 13 (6-50) U/L Alkaline
[2022-08-31] MEDS: SODIUM CHLORIDE 0.9% IV 1,000 ML 100 ML IV CONT (21:51)
[2022-08-31 23:04] VITALS: BP 162/101; PULSE 82; RESP 25; TEMP 37.1; O2SAT 96
[2022-08-31 23:15] VITALS: BP 166/87; PULSE 110; RESP 18; TEMP 36.4; O2SAT 90; BMI 29.9
--- NOTE | 2022-08-31 23:43 | ADMGEN ---
This patient, Randal Duron, was admitted to 2 Medical Room 260-. Patient/family oriented to hospital policies and general routines including ID bracelet, bed and alarms, visiting hours, pain management, procedures, bathroom and other care routines, personal items, smoking policy, room service/diet, and visiting hours. Information on how to activate the Rapid Response Team has been discussed. Patient/Family are encouraged to report perceived risks to care and to ask questions if they do not understand what they are told or what they should do.
[2022-08-31 23:53] LABS: Ammonia < 9 umol/L (9-30); Cholesterol 142 mg/dL (0-200); HDL Direct 44 mg/dL; Triglycerides 95 mg/dL (<150)
[2022-08-31 23:59] LABS: CRP 2.7 mg/dL (<1.0)
[2022-09-01] VITALS (12 sets, daily range): BP systolic 100–126; BP diastolic 65–84; PULSE 61–87; RESP 14–20; TEMP 36.7–37.2; O2SAT 92–96; BMI 29.9; BMI 11.0; BMI 10.0
--- NOTE | 2022-09-01 | ECHO_ITS ---
Patient Info Name: Randal Duron Age: 81 years : 1940 Gender: Male Ht: 66 in Wt: 185 lbs BSA: 2.00 m2 HR: 68 bpm BP: 110 / 84 mmHg Exam Date: 09/01/2022 2:22 PM Exam Location: [facility] Pulmonary Patient Status: Inpatient Admit Date: 08/31/2022 Staff Ordering Physician: Juhi Fair PA-C Shopfitter: Solitario Pettit RDCS, RT Attending Provider: Benton Keita M.A., MD Referring Physician: Marv TAPIA; Exam Type: CA echo doppler color flow Study Info Indications - Edema Complete two-dimensional, color flow and Doppler transthoracic echocardiogram is performed. Strain analysis performed. Summary 1. Complete two-dimensional, color flow and Doppler transthoracic echocardiogram is performed. 2. Left ventricular chamber dimension is normal. 3. Left ventricular systolic function is normal, estimated at 55-60%. 4. There is moderately increased left ventricular wall thickness. 5. The left ventricular diastolic function is grade I diastolic dysfunction. 6. Right ventricular systolic function is normal. 7. There is mild tricuspid valve regurgitation. 8. There is small anterior pericardial effusion. Left Ventricle Left ventricular chamber dimension is normal. Left ventricular systolic function is normal, estimated at 55-60%. There is moderately increased left ventricular wall thickness. The left ventricular diastolic function is grade I diastolic dysfunction. Global longitudinal strain is abnormal at -17 %. Right Ventricle Right ventricular chamber dimension is normal. Right ventricular systolic function is normal. Left Atria Left atrial chamber dimension is normal. Right Atria Right atrial chamber dimension is normal. Aortic Valve The aortic valve is trileaflet. There is moderate aortic valve sclerosis. Pulmonic Valve The pulmonic valve is not well visualized. Mitral Valve There is trace mitral valve regurgitation. The mitral valve annulus is mildly calcified. Tricuspid Valve There is mild tricuspid valve regurgitation. Pericardium/Pleural There is small anterior pericardial effusion. Aorta The aortic root size at the sinus of Valsalva is normal. Left Ventricular Outflow Tract Name Value Normal LVOT 2D LVOT Diameter 2.0 cm LVOT Doppler LVOT Peak Gradient 4 mmHg LVOT Mean Gradient 2 mmHg LVOT VTI 19 cm LVOT Stroke Volume 61 ml LVOT CO 4.1 l/min LVOT CI 2.1 l/min/m2 Mitral Valve Name Value Normal MV Doppler MV Decel [place] 426 cm/s2 MV PHT 66 ms MV Area (PHT) 3.3 cm2 4.0-5.0 MV Diastolic Function
[2022-09-01 00:05] LABS: LDL Cholesterol Direct 72 mg/dL
[2022-09-01 01:03] LABS: Folic Acid 14.3 ng/mL (2.76->20)
[2022-09-01 06:43] LABS: Basophils Percent Auto 0.2 % (0.2-1.2); Eosinophils Absolute Auto 0.1 K/mm3 (0-0.3); Eosinophils Percent Auto 0.6 % (0-4.4); Hemoglobin 14.3 g/dL (14.0-18.0); Immature Granulocyte Absolute 0.06 K/mm3 (0.00-0.031); Immature Granulocyte Percent A 0.7 % (0-0.5); Mean Corpuscular HGB Conc 31.8 g/dl (32-36); Mean Corpuscular Hemoglobin 31.7 pg (26-34); Mean Corpuscular Volume 99.8 fl (80-100); Mean Platelet Volume 9.3 fl (7.4-10.4); Monocytes Absolute Auto 0.6 K/mm3 (0.1-0.6); Neutrophils Absolute Auto 7.3 K/mm3 (1.3-6.7); Neutrophils Percent Auto 83.5 % (45.5-73.1); Platelet Count Result 314 k/mm3 (150-375); Red Blood Count 4.51 M/mm3 (4.6-6.20); Red Cell Distribution Width 12.4 % (11.5-14.5); White Blood Count 8.7 K/mm3 (4.5-10.0)
[2022-09-01 07:24] LABS: Alanine Aminotransferase 30 U/L (6-50); Albumin Level 4.2 g/dL (3.5-5.1); Alkaline Phosphatase 124 U/L (38-126); Anion Gap 7 mmol/L (8-16); Aspartate Amino Transferase 34 U/L (17-59); Bilirubin,Total 1.3 mg/dL (0.2-1.3); Blood Urea Nitrogen 22 mg/dL (9-20); Calcium 9.2 mg/dL (8.4-10.2); Carbon Dioxide 31 mmol/L (22-30); Chloride 99 mmol/L (98-107); Estimated CRCL calculation 70 ml/min; Estimated Glomerular Filt Rate > 60; Glucose 131 mg/dL (65-110); Potassium 3.5 mmol/L (3.4-5.0); Sodium 137 mmol/L (137-145)
--- NOTE | 2022-09-01 09:28 | WPDNEURCNPN ---
Assessment and Plan Assessment and plan (1) Altered mental status: Code(s): R41.82 - Altered mental status, unspecified Status: Acute (2) Afib: Code(s): I48.91 - Unspecified atrial fibrillation Status: Chronic (3) HTN (hypertension): Code(s): I10 - Essential (primary) hypertension Status: Chronic Plan Randal Duron is a 81 year old male with a history of hypertension and atrial fibrillation (on chronic anticoagulation) who presented due to altered mental status. Etiology is unknown at this point. Considering stroke given history of a fib, but no focal deficits noted. Could be prolonged post-ictal state from occult seizure. Also considering infectious and metabolic etiologies, although work-up has been unrevealing. - MRI brain with and without contrast - Routine EEG Consult date: 09/01/22 Reason for consult: Encephalopathy HPI: Randal Duron is a 81 year old male with a history of hypertension and atrial fibrillation (on chronic anticoagulation) who presented due to altered mental status. Patient's reports that patient has been confused since the morning of 08/31. He was able to tell his name, but not able to answer any other questions. He did not have any focal deficits that were noted by . When he presented to [place] ED, his blood pressure was in the 120-160s systolic. His CT head was unrevealing. Labs were unremarkable as well. Ammonia and B12 levels were within appropriate range. MRI and EEG have been ordered but not yet completed. Patient takes Eliquis 5mg BID for atrial fibrillation. No family at bedside at the time of this evaluation. Review of Systems Review of Systems: ROS unobtainable: Yes unobtainable due to mental status PMFSH Past Medical History Medical History Afib BPH (benign prostatic hyperplasia) HTN (hypertension) Surgical History Surgical History History of cataract surgery History of hip replacement, total Left Social History Social History Smoking status: Never smoker Alcohol intake: unknown Substance use: never Gender identity (if verbalized by the patient): Male Sexual Orientation (if Verbalized by the Patient): Straight or Heterosexual Spiritual care concerns: No Meds Home Medications and Allergies Home Medications Medication Instructions Recorded Confirmed Type amiodarone 200 mg tablet 200 mg PO HS 02/28/20 08/31/22 History metoprolol succinate 25 mg 25 mg PO HS 02/28/20 08/31/22 History tablet,extended release 24 hr potassium chloride 20 mEq 20 meq PO DAILY 02/28/20 08/31/22 History tablet,extended release(part/cryst) (Klor-Con M) rosuvastatin 10 mg tablet 5 mg PO HS 02/28/20 08/31/22 History tamsulosin 0.4 mg capsule 0.4 mg PO HS 02/28/20 08/31/22 History apixaban 5 mg tablet (Eliquis) 5 mg BID 08/16/22 08/31/22 History tramadol 50 mg tablet 50 mg PO Q12H PRN pain #10 tabs 08/16/22 08/31/22 Rx Allergies Allergy/AdvReac Type Severity Reaction Status Date / Time amoxicillin [From Augmentin] Allergy Rash Verified 08/31/22 18:48 clavulanic acid Allergy Rash Verified 08/31/22 18:48 [From Augmentin] Vital Signs Vital Signs - 24 hr 08/31/22 15:44 08/31/22 18:46 08/31/22 19:47 Temperature 36.7 C Pulse Rate 80 91 82 Respiratory Rate 17 27 H 26 H Blood Pressure 121/75 154/94 H Pulse Oximetry 97 97 99 Oxygen Delivery Room Air 08/31/22 20:52 08/31/22 23:04 08/31/22 23:15 Temperature 37.1 C 36.4 C Pulse Rate 79 82 110 H Respiratory Rate 23 H 25 H 18 Blood Pressure 138/80 162/101 H 166/87 H Pulse Oximetry 96 96 90 Oxygen Delivery 09/01/22 00:09 09/01/22 00:00 09/01/22 04:00 Temperature Pulse Rate 77 79 82 Respiratory Rate Blood Pressure Pulse Oximetry Oxygen Delivery 09/01/22 04:59 Temperature 36
[2022-09-01] MEDS: SODIUM CHLORIDE 0.9% IV 1,000 ML 100 ML IV CONT (09:32)
[2022-09-01] MEDS: FAMOTIDINE 20 MG TABLET PO ×2 (09:33→20:15)
[2022-09-01] MEDS: POTASSIUM CHLORIDE 20 MEQ TABLET.ER PO (09:33)
[2022-09-01] MEDS: TOLNAFTATE 1% POWDER 45 GM BTL 1 APPLIC TOPICAL ×2 (09:33→20:15)
[2022-09-01] MEDS: APIXABAN 5 MG TABLET PO ×2 (09:33→18:02)
[2022-09-01 10:51] LABS: Creatine Kinase 69 U/L (55-170)
--- NOTE | 2022-09-01 11:41 | PM.IMPN ---
Progress Note: A&P Assessment and Plan (1) Confusion: Code(s): R41.0 - Disorientation, unspecified Status: Acute Assessment and Plan: Patient presented to ED with confusion per his . Patient has been in a chair at home for 3 weeks. Patient likely has physical deconditioning and/or failure to thrive. Patient is oriented to self and place but not with time and situation. He does ramble and appear to be confused. Per nursing staff patients may also be confused. Most likely acute metabolic encephalopathy vs. dementia; unlikely encephalitis or meningitis Head CT no acute intracranial process Chest x-ray no acute cardiopulmonary process No sign of infection, UA Clear Neurology evaluation and appreciate recommendations Eeg ordered. MRI of the brain cannot be done due to patient unable to lay flat. Neuro check q4h B12 ammonia and CK normal (2) Right hip pain: Code(s): M25.551 - Pain in right hip Status: Acute Assessment and Plan: Patient states that he has right hip pain that has been ongoing. It is un clear how long patient has experiences right hip pain. X-ray of the hip pelvis revealing no acute finding in the pelvis or right hip Analgesics as needed Right hip pain could be due to patient favoring the right side and having constant pressure on the right hip. (3) Edema: Code(s): R60.9 - Edema, unspecified Status: Chronic Assessment and Plan: Patient with bilateral lower extremity edema right greater than left. Patient states that he has had this for years is being managed by his primary care provider. Edema appears to be lymphedema versus CHF compression stockings ordered BNP normal Will order echocardiogram (4) Failure to thrive: Status: Acute Assessment and Plan: Patient has been unable to move out of his chair at home other than to urinate and have bowel movements. He states that he uses a walker to ambulate. Patient's appearance is concerning as far as his overall physical health. Dietitian consulted PT and OT to evaluate Believe patient would most likely be discharged to residential facility. (5) Afib: Code(s): I48.91 - Unspecified atrial fibrillation Status: Chronic Assessment and Plan: Patient had home on oral anticoagulation amiodarone metoprolol Added p.r.n. IV metoprolol Telemetry monitoring. (6) HTN (hypertension): Code(s): I10 - Essential (primary) hypertension Status: Chronic Assessment and Plan: P.r.n. IV metoprolol home medication continued Subjective Date/time seen: 09/01/22 11:41 Interval history: Patient lying in bed pleasantly confused. He is very worried about where his is at the time. patient lying in bed and appears to be uncomfortable. Upon observation patient favors his right side in leads that way putting pressure on his right arm and right hip. Patient states that he does have right hip pain. Patient is able to get up and use a walker at home although he appears to be very weak. Patient is not sure why he is in the hospital. Have not been able to find any known cause for patient's confusion and disorientation. He could very well have dementia although this has not been diagnosed. Would advised patient be eventually discharged to SNF. Review of Systems Review of Systems: All systems reviewed & are unremarkable except as noted in HPI and below Exam Narrative: GENERAL: Uncomfortable, no acute distress, patient in position leading to the right side HENMT: moist mucous membranes EYES: EOM intact b/l NECK: no lymphadenopathy RESPIRATORY: clear to auscultation CARDIO: distant heart sounds GI: soft, nontender, bowel sounds present SKIN/EXTREMITIES: Bilateral lower extremity pitting edema right greater than left. Objective Data Vital Signs Vital Signs: Vital Signs -
--- NOTE | 2022-09-01 13:02 | PC.NURSE ---
On 09/01/22, the student, [Luis Eduardo Harp], provided care and completed [facility] documentation on this patient. I have reviewed the student's documentation and agree with the findings.
--- NOTE | 2022-09-01 14:15 | PC.NURSE ---
On 09/01/22, the student, [Alysha Gandhi], provided care and completed [facility] documentation on this patient. I have reviewed the student's documentation and agree with the findings.
[2022-09-01] MEDS: AMIODARONE HCL 200 MG TABLET PO (20:14)
[2022-09-01] MEDS: TAMSULOSIN HCL 0.4 MG CAPSULE PO (20:15)
[2022-09-01] MEDS: ROSUVASTATIN 5 MG TABLET PO (20:15)
[2022-09-01] MEDS: METOPROLOL SUCCINATE EXT REL 25 MG TABCR PO (20:15)
[2022-09-02] VITALS (9 sets, daily range): BP systolic 113–138; BP diastolic 59–68; PULSE 64–72; RESP 18; TEMP 36.6–36.8; O2SAT 96–98
--- NOTE | 2022-09-02 01:24 | PC.NURSE ---
PT RESTLESS CONTINUES TO PULL OFF TELEMETRY, GOWN AND DEPENDS. PT ALSO PULLED DOWN ANI WRAPS STATING HIS LEGS HURT. PT REQUESTED THEY BE REMOVED. REMOVED AIN WRAPS WILL ATTEMPT TO REAPPLY THEM IN THE AM.
[2022-09-02 05:17] LABS: Basophils Percent Auto 0.2 % (0.2-1.2); Eosinophils Absolute Auto 0.1 K/mm3 (0-0.3); Eosinophils Percent Auto 1.3 % (0-4.4); Hematocrit 40.3 % (42.0-52.0); Hemoglobin 12.8 g/dL (14.0-18.0); Immature Granulocyte Absolute 0.06 K/mm3 (0.00-0.031); Immature Granulocyte Percent A 0.7 % (0-0.5); Lymphocytes Percent Auto 7.3 % (18.3-44.2); Mean Corpuscular HGB Conc 31.8 g/dl (32-36); Mean Corpuscular Hemoglobin 32.3 pg (26-34); Mean Corpuscular Volume 101.8 fl (80-100); Mean Platelet Volume 9.3 fl (7.4-10.4); Monocytes Absolute Auto 0.7 K/mm3 (0.1-0.6); Monocytes Percent Auto 8.6 % (2.6-8.5); Neutrophils Absolute Auto 6.7 K/mm3 (1.3-6.7); Neutrophils Percent Auto 81.9 % (45.5-73.1); Platelet Count Result 241 k/mm3 (150-375); Red Blood Count 3.96 M/mm3 (4.6-6.20); Red Cell Distribution Width 12.4 % (11.5-14.5); White Blood Count 8.2 K/mm3 (4.5-10.0)
[2022-09-02 05:28] LABS: Alanine Aminotransferase 11 U/L (6-50); Albumin Level 3.2 g/dL (3.5-5.1); Alkaline Phosphatase 92 U/L (38-126); Anion Gap 4 mmol/L (8-16); Aspartate Amino Transferase 34 U/L (17-59); Bilirubin,Total 1.3 mg/dL (0.2-1.3); Blood Urea Nitrogen 17 mg/dL (9-20); Calcium 8.8 mg/dL (8.4-10.2); Carbon Dioxide 29 mmol/L (22-30); Chloride 105 mmol/L (98-107); Estimated CRCL calculation 81 ml/min; Estimated Glomerular Filt Rate > 60; Glucose 104 mg/dL (65-110); Potassium 3.6 mmol/L (3.4-5.0); Sodium 138 mmol/L (137-145)
--- NOTE | 2022-09-02 07:00 | P.PNIM_ITS ---
Progress Note: A&P Assessment and Plan (1) Confusion: Code(s): R41.0 - Disorientation, unspecified Status: Acute Assessment and Plan: Patient presented to ED with confusion per his . Patient has been in a chair at home for 3 weeks. Patient likely has physical deconditioning and/or failure to thrive. Patient is oriented to self and place but not with time and situation. He does ramble and appear to be confused. Per nursing staff patients may also be confused. * Most likely acute metabolic encephalopathy vs. dementia; unlikely encephalitis or meningitis * Head CT no acute intracranial process * Chest x-ray no acute cardiopulmonary process * No sign of infection, UA Clear * Neurology evaluation and appreciate recommendations * Eeg ordered. * MRI of the brain cannot be done due to patient unable to lay flat. * Neuro check q4h * B12 ammonia and CK normal (2) Right hip pain: Code(s): M25.551 - Pain in right hip Status: Acute Assessment and Plan: Patient states that he has right hip pain that has been ongoing. It is un clear how long patient has experiences right hip pain. * X-ray of the hip pelvis revealing no acute finding in the pelvis or right hip * Analgesics as needed * Right hip pain could be due to patient favoring the right side and having constant pressure on the right hip. (3) Edema: Code(s): R60.9 - Edema, unspecified Status: Chronic Assessment and Plan: Patient with bilateral lower extremity edema right greater than left. Patient states that he has had this for years is being managed by his primary care provider. Edema appears to be lymphedema versus CHF. * compression stockings ordered * BNP normal * Echo revealing EF 55-60%, grade 1 diastolic dysfunction, mild tricuspid regurg, moderately increased left ventricular wall thickness, and small anterior pericardial effusion. (4) Failure to thrive: Status: Acute Assessment and Plan: Patient has been unable to move out of his chair at home other than to urinate and have bowel movements. He states that he uses a walker to ambulate. Patient's appearance is concerning as far as his overall physical health. * Dietitian consulted. * PT and OT to evaluate. * Believe patient would most likely be discharged to [facility] facility. (5) Afib: Code(s): I48.91 - Unspecified atrial fibrillation Status: Chronic Assessment and Plan: Patient had home on oral anticoagulation amiodarone metoprolol * Added p.r.n. IV metoprolol * Telemetry monitoring. (6) HTN (hypertension): Code(s): I10 - Essential (primary) hypertension Status: Chronic Assessment and Plan: * P.r.n. IV metoprolol * home medication continued (7) Severe malnutrition: Code(s): E43 - Unspecified severe protein-calorie malnutrition Status: Acute Assessment and Plan: Treat per RD recommendations. (8) Abdominal pain: Code(s): R10.9 - Unspecified abdominal pain Status: Acute Assessment and Plan: Patient has abdominal distention and increased gas. * KUB * CT abdomen and pelvis revealing new T10 compression fracture and stable compression fractures at L1-L2 L3-L4 and L5, nonobstructing renal calculi, moderate to large hiatal hernia. Subjective Date/time seen: 09/02/22 07:00
--- NOTE | 2022-09-02 07:00 | PM.IMPN ---
Progress Note: A&P Assessment and Plan (1) Confusion: Code(s): R41.0 - Disorientation, unspecified Status: Acute Assessment and Plan: Patient presented to ED with confusion per his . Patient has been in a chair at home for 3 weeks. Patient likely has physical deconditioning and/or failure to thrive. Patient is oriented to self and place but not with time and situation. He does ramble and appear to be confused. Per nursing staff patients may also be confused. Most likely acute metabolic encephalopathy vs. dementia; unlikely encephalitis or meningitis Head CT no acute intracranial process Chest x-ray no acute cardiopulmonary process No sign of infection, UA Clear Neurology evaluation and appreciate recommendations Eeg ordered. MRI of the brain cannot be done due to patient unable to lay flat. Neuro check q4h B12 ammonia and CK normal (2) Right hip pain: Code(s): M25.551 - Pain in right hip Status: Acute Assessment and Plan: Patient states that he has right hip pain that has been ongoing. It is un clear how long patient has experiences right hip pain. X-ray of the hip pelvis revealing no acute finding in the pelvis or right hip Analgesics as needed Right hip pain could be due to patient favoring the right side and having constant pressure on the right hip. (3) Edema: Code(s): R60.9 - Edema, unspecified Status: Chronic Assessment and Plan: Patient with bilateral lower extremity edema right greater than left. Patient states that he has had this for years is being managed by his primary care provider. Edema appears to be lymphedema versus CHF. compression stockings ordered BNP normal Echo revealing EF 55-60%, grade 1 diastolic dysfunction, mild tricuspid regurg, moderately increased left ventricular wall thickness, and small anterior pericardial effusion. (4) Failure to thrive: Status: Acute Assessment and Plan: Patient has been unable to move out of his chair at home other than to urinate and have bowel movements. He states that he uses a walker to ambulate. Patient's appearance is concerning as far as his overall physical health. Dietitian consulted. PT and OT to evaluate. Believe patient would most likely be discharged to [facility] facility. (5) Afib: Code(s): I48.91 - Unspecified atrial fibrillation Status: Chronic Assessment and Plan: Patient had home on oral anticoagulation amiodarone metoprolol Added p.r.n. IV metoprolol Telemetry monitoring. (6) HTN (hypertension): Code(s): I10 - Essential (primary) hypertension Status: Chronic Assessment and Plan: P.r.n. IV metoprolol home medication continued (7) Severe malnutrition: Code(s): E43 - Unspecified severe protein-calorie malnutrition Status: Acute Assessment and Plan: Treat per RD recommendations. (8) Abdominal pain: Code(s): R10.9 - Unspecified abdominal pain Status: Acute Assessment and Plan: Patient has abdominal distention and increased gas. KUB CT abdomen and pelvis revealing new T10 compression fracture and stable compression fractures at L1-L2 L3-L4 and L5, nonobstructing renal calculi, moderate to large hiatal hernia. Subjective Date/time seen: 09/02/22 07:00 Interval history: patient lying in bed comfortably. Patient looking better today and seems more alert. Patient is not alert oriented to place and situation. Patient complains of abdominal pain and abdominal bloating. He states that he is very gassy and unsure light. Will order a KUB. Other than this patient has no complaints at this time. Review of Systems Review of Systems: All systems reviewed & are unremarkable except as noted in HPI and below Exam Narrative: GENERAL: Uncomfortable, no acute distress, patient in p
[2022-09-02] MEDS: FAMOTIDINE 20 MG TABLET PO ×2 (08:19→20:10)
[2022-09-02] MEDS: APIXABAN 5 MG TABLET PO ×2 (08:19→17:17)
[2022-09-02] MEDS: POTASSIUM CHLORIDE 20 MEQ TABLET.ER PO (08:19)
[2022-09-02] MEDS: TOLNAFTATE 1% POWDER 45 GM BTL 1 APPLIC TOPICAL ×2 (08:20→20:10)
--- NOTE | 2022-09-02 11:35 | PC.NURSE ---
On 09/02/22, the student, [Luis Eduardo Harp], provided care and completed [facility] documentation on this patient. I have reviewed the student's documentation and agree with the findings.
[2022-09-02] MEDS: traMADol HCL (*CRX) 50 MG TABLET PO (20:09)
[2022-09-02] MEDS: METOPROLOL SUCCINATE EXT REL 25 MG TABCR PO (20:10)
[2022-09-02] MEDS: ROSUVASTATIN 5 MG TABLET PO (20:10)
[2022-09-02] MEDS: TAMSULOSIN HCL 0.4 MG CAPSULE PO (20:10)
[2022-09-02] MEDS: AMIODARONE HCL 200 MG TABLET PO (20:10)
--- NOTE | 2022-09-02 20:53 | WPDNEUROSGCN ---
Assessment and Plan Assessment and plan (1) Compression fracture of T10 vertebra: Code(s): S22.070A - Wedge compression fracture of T9-T10 vertebra, initial encounter for closed fracture Status: Acute Plan - Brace company to come tomorrow morning and fit paient for LSO brace - To be worn when up out of bed if he can tolerate PMFSH Past Medical History Medical History Afib BPH (benign prostatic hyperplasia) HTN (hypertension) Surgical History Surgical History History of cataract surgery History of hip replacement, total Left Social History Social History Smoking status: Never smoker Alcohol intake: unknown Substance use: never Gender identity (if verbalized by the patient): Male Sexual Orientation (if Verbalized by the Patient): Straight or Heterosexual Spiritual care concerns: No Meds Home Medications and Allergies Home Medications Medication Instructions Recorded Confirmed Type amiodarone 200 mg tablet 200 mg PO HS 02/28/20 08/31/22 History metoprolol succinate 25 mg 25 mg PO HS 02/28/20 08/31/22 History tablet,extended release 24 hr potassium chloride 20 mEq 20 meq PO DAILY 02/28/20 08/31/22 History tablet,extended release(part/cryst) (Klor-Con M) rosuvastatin 10 mg tablet 5 mg PO HS 02/28/20 08/31/22 History tamsulosin 0.4 mg capsule 0.4 mg PO HS 02/28/20 08/31/22 History apixaban 5 mg tablet (Eliquis) 5 mg BID 08/16/22 08/31/22 History tramadol 50 mg tablet 50 mg PO Q12H PRN pain #10 tabs 08/16/22 08/31/22 Rx Allergies Allergy/AdvReac Type Severity Reaction Status Date / Time amoxicillin [From Augmentin] Allergy Rash Verified 08/31/22 18:48 clavulanic acid Allergy Rash Verified 08/31/22 18:48 [From Augmentin] Vital Signs Vital Signs - 24 hr 09/02/22 03:28 09/02/22 04:00 09/02/22 08:00 Temperature 36.7 C Pulse Rate 65 70 66 Respiratory Rate 18 Blood Pressure 125/65 Pulse Oximetry 96 09/02/22 12:00 09/02/22 14:00 09/02/22 16:00 Temperature 36.6 C Pulse Rate 72 67 64 Respiratory Rate 18 Blood Pressure 113/59 L Pulse Oximetry 98 09/02/22 19:45 09/02/22 20:10 09/02/22 20:10 Temperature 36.8 C Pulse Rate 72 72 72 Respiratory Rate 18 Blood Pressure 138/68 Pulse Oximetry 96 Results Labs 09/02/22 05:04 09/02/22 05:04 Labs: Short CBC 09/02/22 Range/Units 05:04 WBC 8.2 (4.5-10.0) K/mm3 Hgb 12.8 L (14.0-18.0) g/dL Hct 40.3 L (42.0-52.0) % Plt Count 241 (150-375) k/mm3 BMP 09/02/22 05:04 Sodium 138 Potassium 3.6 Chloride 105 Carbon Dioxide 29 BUN 17 Creatinine 0.60 L Glucose 104 Calcium 8.8 Liver Function 09/02/22 Range/Units 05:04 Total Bilirubin 1.3 (0.2-1.3) mg/dL AST 34 (17-59) U/L ALT 11 (6-50) U/L Alkaline Phosphatase 92 (38-126) U/L Albumin 3.2 L (3.5-5.1) g/dL
[2022-09-03] VITALS: PULSE 69
[2022-09-03 04:00] VITALS: PULSE 60
[2022-09-03 04:23] VITALS: BP 139/75; PULSE 68; RESP 18; TEMP 36.1; O2SAT 94
[2022-09-03 06:21] LABS: Basophils Percent Auto 0.3 % (0.2-1.2); Eosinophils Absolute Auto 0.2 K/mm3 (0-0.3); Eosinophils Percent Auto 2.2 % (0-4.4); Hematocrit 40.9 % (42.0-52.0); Hemoglobin 13.1 g/dL (14.0-18.0); Immature Granulocyte Absolute 0.06 K/mm3 (0.00-0.031); Immature Granulocyte Percent A 0.8 % (0-0.5); Lymphocytes Absolute Auto 0.79 K/mm3 (0.9-3.2); Lymphocytes Percent Auto 10.3 % (18.3-44.2); Mean Corpuscular Hemoglobin 32.2 pg (26-34); Mean Corpuscular Volume 100.5 fl (80-100); Mean Platelet Volume 9.3 fl (7.4-10.4); Monocytes Absolute Auto 0.6 K/mm3 (0.1-0.6); Monocytes Percent Auto 7.7 % (2.6-8.5); Neutrophils Absolute Auto 6.1 K/mm3 (1.3-6.7); Neutrophils Percent Auto 78.7 % (45.5-73.1); Platelet Count Result 270 k/mm3 (150-375); Red Blood Count 4.07 M/mm3 (4.6-6.20); Red Cell Distribution Width 12.1 % (11.5-14.5); White Blood Count 7.7 K/mm3 (4.5-10.0)
[2022-09-03 07:06] LABS: Alanine Aminotransferase 10 U/L (6-50); Albumin Level 3.1 g/dL (3.5-5.1); Alkaline Phosphatase 97 U/L (38-126); Anion Gap 5 mmol/L (8-16); Aspartate Amino Transferase 35 U/L (17-59); Bilirubin,Total 1.3 mg/dL (0.2-1.3); Blood Urea Nitrogen 16 mg/dL (9-20); Calcium 8.5 mg/dL (8.4-10.2); Carbon Dioxide 28 mmol/L (22-30); Chloride 102 mmol/L (98-107); Estimated CRCL calculation 81 ml/min; Estimated Glomerular Filt Rate > 60; Glucose 92 mg/dL (65-110); Potassium 3.7 mmol/L (3.4-5.0); Sodium 135 mmol/L (137-145)
[2022-09-03 08:00] VITALS: PULSE 68
[2022-09-03] MEDS: APIXABAN 5 MG TABLET PO (08:13)
[2022-09-03] MEDS: POTASSIUM CHLORIDE 20 MEQ TABLET.ER PO (08:13)
[2022-09-03] MEDS: FAMOTIDINE 20 MG TABLET PO (08:13)
[2022-09-03] MEDS: TOLNAFTATE 1% POWDER 45 GM BTL 1 APPLIC TOPICAL (08:14)
[2022-09-03] MEDS: ACETAMINOPHEN 325 MG TABLET 650 MG PO (08:17)
[2022-09-03 12:00] VITALS: PULSE 71
[2022-09-03 12:48] LABS: EDCOVIDSCREEN Negative (Negative)
--- NOTE | 2022-09-03 12:52 | P.DS_ITS ---
DS: Admitting Diagnosis Discharge Date 09/03/22 Admitting Diagnosis Acute metabolic encephalopathy DS: Discharge Diagnosis Discharge Diagnosis (1) Confusion: Code(s): R41.0 - Disorientation, unspecified Status: Acute Assessment and Plan: Patient presented to ED with confusion per his . Patient has been in a chair at home for 3 weeks. Patient likely has physical deconditioning and/or failure to thrive. Patient is oriented to self and place but not with time and situation. He does ramble and appear to be confused. Per nursing staff patients may also be confused. * Most likely acute metabolic encephalopathy vs. dementia; unlikely encephalitis or meningitis * Head CT no acute intracranial process * Chest x-ray no acute cardiopulmonary process * No sign of infection, UA Clear * Neurology evaluation and appreciate recommendations * Eeg ordered. * MRI of the brain cannot be done due to patient unable to lay flat. * Neuro check q4h * B12 ammonia and CK normal (2) Right hip pain: Code(s): M25.551 - Pain in right hip Status: Acute Assessment and Plan: Patient states that he has right hip pain that has been ongoing. It is un clear how long patient has experiences right hip pain. * X-ray of the hip pelvis revealing no acute finding in the pelvis or right hip * Analgesics as needed * Right hip pain could be due to patient favoring the right side and having constant pressure on the right hip. (3) Edema: Code(s): R60.9 - Edema, unspecified Status: Chronic Assessment and Plan: Patient with bilateral lower extremity edema right greater than left. Patient states that he has had this for years is being managed by his primary care provider. Edema appears to be lymphedema versus CHF. * compression stockings ordered * BNP normal * Echo revealing EF 55-60%, grade 1 diastolic dysfunction, mild tricuspid regurg, moderately increased left ventricular wall thickness, and small anterior pericardial effusion. (4) Failure to thrive: Status: Acute Assessment and Plan: Patient has been unable to move out of his chair at home other than to urinate and have bowel movements. He states that he uses a walker to ambulate. Patient's appearance is concerning as far as his overall physical health. * Dietitian consulted. * PT and OT to evaluate. * Believe patient would most likely be discharged to [facility] facility. (5) Afib: Code(s): I48.91 - Unspecified atrial fibrillation Status: Chronic Assessment and Plan: Patient had home on oral anticoagulation amiodarone metoprolol * Added p.r.n. IV metoprolol * Telemetry monitoring. (6) HTN (hypertension): Code(s): I10 - Essential (primary) hypertension Status: Chronic Assessment and Plan: * P.r.n. IV metoprolol * home medication continued (7) Severe malnutrition: Code(s): E43 - Unspecified severe protein-calorie malnutrition Status: Acute Assessment and Plan: Treat per RD recommendations. (8) Abdominal pain: Code(s): R10.9 - Unspecified abdominal pain Status: Acute Assessment and Plan: Patient has abdominal distention and increased gas. * KUB no acute abdominal abnormality * CT abdomen and pelvis revealing new T10 compression fracture and stable compression fractures at L1-L2 L3-L4 and L5, n
--- NOTE | 2022-09-03 12:52 | PM.IMPN ---
Subjective Date/time seen: 09/03/22 12:52 Objective Data Vital Signs Vital Signs: Vital Signs - 24 hr 09/02/22 14:00 09/02/22 16:00 09/02/22 19:45 Temperature 97.9 F 98.2 F Pulse Rate 67 64 72 Respiratory Rate 18 18 Blood Pressure 113/59 L 138/68 Pulse Oximetry 98 96 Oxygen Delivery 09/02/22 20:10 09/02/22 20:10 09/02/22 20:00 Temperature Pulse Rate 72 72 Respiratory Rate Blood Pressure Pulse Oximetry Oxygen Delivery Room Air 09/02/22 20:00 09/03/22 00:00 09/03/22 04:00 Temperature Pulse Rate 71 69 60 Respiratory Rate Blood Pressure Pulse Oximetry Oxygen Delivery 09/03/22 04:23 09/03/22 08:00 09/03/22 08:00 Temperature 96.9 F L Pulse Rate 68 68 68 Respiratory Rate 18 Blood Pressure 139/75 Pulse Oximetry 94 Oxygen Delivery 09/03/22 08:10 09/03/22 12:00 Temperature Pulse Rate 71 Respiratory Rate Blood Pressure Pulse Oximetry Oxygen Delivery Room Air Intake/Output Intake/Output: Intake & Output 08/31/22 09/01/22 09/02/22 09/03/22 23:59 23:59 23:59 23:59 Intake Total 1150 383 580 Output Total 100 202 Balance -100 948 383 580 Meds/Results Medications: Active Medications Generic Name Dose Route Start Last Admin Trade Name Freq PRN Reason Stop Dose Admin Acetaminophen 650 mg 08/31/22 21:36 09/03/22 08:17 Acetaminophen 325 Mg Tablet PO 650 mg Q6H PRN Administration Mild Pain (1-3) Amiodarone HCl 200 mg 09/01/22 21:00 09/02/22 20:10 Amiodarone Hcl 200 Mg Tablet PO 200 mg HS TAYLOR Administration Apixaban 5 mg 09/01/22 09:00 09/03/22 08:13 Apixaban 5 Mg Tablet PO 5 mg BID TAYLOR Administration Famotidine 20 mg 09/01/22 09:00 09/03/22 08:13 Famotidine 20 Mg Tablet PO 20 mg Q12HR TAYLOR Administration Metoprolol Succinate 25 mg 09/01/22 21:00 09/02/22 20:10 Metoprolol Succinate Ext Rel 25 Mg Tabcr PO 25 mg HS TAYLOR Administration Metoprolol Tartrate 5 mg 08/31/22 21:34 Metoprolol Tartrate Inj 5 Mg/5 Ml Vial IV PUSH Q6H PRN Tachycardia Ondansetron HCl 4 mg 08/31/22 21:36 Ondansetron Inj 4 Mg/2 Ml Vial IV PUSH Q6H PRN Nausea And Vomiting Polyethylene Glycol 17 gm 09/03/22 09:00 09/03/22 08:26 Polyethylene Glycol 3350 17 Gm Powd.Pack PO Not Given QAM [facility] Potassium Chloride 20 meq 09/01/22 09:00 09/03/22 08:13 Potassium Chloride 20 Meq Tablet.Er PO 20 meq DAILY TAYLOR Administration Rosuvastatin Calcium 5 mg 09/01/22 21:00 09/02/22 20:10 Rosuvastatin 5 Mg Tablet PO 5 mg HS TAYLOR Administration Tamsulosin HCl 0.4 mg 09/01/22 21:00 09/02/22 20:10 Tamsulosin Hcl 0.4 Mg Capsule PO 0.4 mg HS TAYLOR Administration Tolnaftate 1 applic 09/01/22 09:00 09/03/22 08:14 Tolnaftate 1% Powder 45 Gm Btl TOPICAL 1 applic Q12HR TAYLOR Administration Tramadol HCl 50 mg 09/01/22 07:09 09/02/22 20:09 Tramadol Hcl (*Crx) 50 Mg Tablet PO 50 mg Q12H PRN Administration pain Radiology Results: ITS Impressions Head CT 08/31/22 19:36 IMPRESSION: No acute intracranial process. Chest X-Ray 08/31/22 19:58 IMPRESSION: No acute cardiopulmonary process. Hip/Pelvis X-Ray 08/31/22 20:20 IMPRESSION: No acute osseous finding in the pelvis or right hip. Abdomen/Pelvis CT 09/02/22 12:15 Impression: New T10 compression fracture. Stable additional compression fractures of L1, L2, L3, L4, L5. Bilateral nonobstructing renal calculi. Moderate to large hiatal hernia. Abdomen X-Ray 09/02/22 15:36 Impression: 1: No acute abdominal abnormality. Labs Labs: Laboratory Results - last 24 hr 09/03/22 09/03/22 09/03/22 05:48 05:48 12:30 WBC 7.7 RBC 4.07 L Hgb 13.1 L Hct 40.9 L MCV 100.5 H MCH 32.2 MCHC 32.0 RDW 12.1 Plt Count 270 MPV 9.3 Immature Gran % (Auto) 0.8 H Neut % (Auto) 78.7 H Lymph % (
--- NOTE | 2022-09-03 12:52 | PM.DS ---
DS: Admitting Diagnosis Discharge Date 09/03/22 Admitting Diagnosis Acute metabolic encephalopathy DS: Discharge Diagnosis Discharge Diagnosis (1) Confusion: Code(s): R41.0 - Disorientation, unspecified Status: Acute Assessment and Plan: Patient presented to ED with confusion per his . Patient has been in a chair at home for 3 weeks. Patient likely has physical deconditioning and/or failure to thrive. Patient is oriented to self and place but not with time and situation. He does ramble and appear to be confused. Per nursing staff patients may also be confused. Most likely acute metabolic encephalopathy vs. dementia; unlikely encephalitis or meningitis Head CT no acute intracranial process Chest x-ray no acute cardiopulmonary process No sign of infection, UA Clear Neurology evaluation and appreciate recommendations Eeg ordered. MRI of the brain cannot be done due to patient unable to lay flat. Neuro check q4h B12 ammonia and CK normal (2) Right hip pain: Code(s): M25.551 - Pain in right hip Status: Acute Assessment and Plan: Patient states that he has right hip pain that has been ongoing. It is un clear how long patient has experiences right hip pain. X-ray of the hip pelvis revealing no acute finding in the pelvis or right hip Analgesics as needed Right hip pain could be due to patient favoring the right side and having constant pressure on the right hip. (3) Edema: Code(s): R60.9 - Edema, unspecified Status: Chronic Assessment and Plan: Patient with bilateral lower extremity edema right greater than left. Patient states that he has had this for years is being managed by his primary care provider. Edema appears to be lymphedema versus CHF. compression stockings ordered BNP normal Echo revealing EF 55-60%, grade 1 diastolic dysfunction, mild tricuspid regurg, moderately increased left ventricular wall thickness, and small anterior pericardial effusion. (4) Failure to thrive: Status: Acute Assessment and Plan: Patient has been unable to move out of his chair at home other than to urinate and have bowel movements. He states that he uses a walker to ambulate. Patient's appearance is concerning as far as his overall physical health. Dietitian consulted. PT and OT to evaluate. Believe patient would most likely be discharged to [facility] facility. (5) Afib: Code(s): I48.91 - Unspecified atrial fibrillation Status: Chronic Assessment and Plan: Patient had home on oral anticoagulation amiodarone metoprolol Added p.r.n. IV metoprolol Telemetry monitoring. (6) HTN (hypertension): Code(s): I10 - Essential (primary) hypertension Status: Chronic Assessment and Plan: P.r.n. IV metoprolol home medication continued (7) Severe malnutrition: Code(s): E43 - Unspecified severe protein-calorie malnutrition Status: Acute Assessment and Plan: Treat per RD recommendations. (8) Abdominal pain: Code(s): R10.9 - Unspecified abdominal pain Status: Acute Assessment and Plan: Patient has abdominal distention and increased gas. KUB no acute abdominal abnormality CT abdomen and pelvis revealing new T10 compression fracture and stable compression fractures at L1-L2 L3-L4 and L5, nonobstructing renal calculi, moderate to large hiatal hernia. DS: Summary Hospital Course Reason for hospitalization: acute metabolic encephalopathy Hospital Course: This is an 81-year-old male with past medical history of AFib, hyperlipidemia and hypertension the present to the ED on 08/31/2022 with confusion. Patient's stated that for the past couple weeks patient has been not feeling well and not being able to get up out of his chair other than to urinate and have a bowel movement. Patient with
[2022-09-03 14:00] VITALS: BP 110/70; PULSE 85; RESP 18; TEMP 36.8; O2SAT 94
== END 2022-09-03 15:50 | DRG 70 ==
LOC: ANHED 19:06 → ANH2MED 22:45
PROVIDERS: Emergency Medicine; Admitting Provider Internal Medicine; Emergency Provider General Practice; Visit Provider Internal Medicine Critical Care Medicine
DX: G93.41 Metabolic encephalopathy (principal); E43 Unspecified severe protein-calorie malnutrition; S22.070A Wedge compression fracture of T9-T10 vertebra, initial encounter for closed fracture; F03.90 Unspecified dementia, unspecified severity, without behavioral disturbance, psychotic disturbance, mood disturbance, and anxiety; M25.551 Pain in right hip; R60.9 Edema, unspecified; R62.7 Adult failure to thrive; Z68.30 Body mass index [BMI] 30.0-30.9, adult; I48.91 Unspecified atrial fibrillation; I10 Essential (primary) hypertension; R10.9 Unspecified abdominal pain; K44.9 Diaphragmatic hernia without obstruction or gangrene
CPT/HCPCS: 36415; 70450; 71045; 73502; 74018; 74176; 80053; 80061; 81003; 82140; 82550; 82607; 82746; 83880; 84443; 85025; 85610; 85730; 86140; 87426; 93005; 93306; 97110; 97116; 97161; 97165; 97535; 99285; A9270; C9803; G0378; J7030